=== PATIENT | female | born 1995 | race Caucasian/White ===

== ENCOUNTER 2017-04-21 15:31 | Emergency (ER) | payer OTHER, MEDICAID ==
[~2017-04-21] VITALS: Ht 165.1 cm; Wt 75.7 kg
[2017-04-21 19:13] VITALS: BP 116/65
== END 2017-04-21 19:13 | disposition home or self-care (01) ==
LOC: ED 15:31
DX: N61.0 Mastitis without abscess (principal)
CPT/HCPCS: J0696